=== PATIENT | male | born 1965 | race Caucasian/White ===

== ENCOUNTER 2021-03-20 05:47 | Day surgery (SDC) | payer OTHER ==
[2021-03-17 15:44] LABS: MICROSCOPIC AUTO
[2021-03-17 16:01] LABS: ALANINE AMINOTRANSFERASE 22 U/L (12-78); ALBUMIN 3.9 g/dL (3.4-5.0); ANION GAP 6 mmol/L (5-15); CALCIUM 8.9 mg/dL (8.5-10.1); CHLORIDE 110 mmol/L (98-107)
[2021-03-17 16:04] LABS: ALKALINE PHOSPHATASE 125 U/L (45-117); BILIRUBIN,TOTAL 0.3 mg/dL (0.2-1.0); TOTAL PROTEIN 6.6 g/dL (6.4-8.2)
[~2021-03-20] VITALS: Ht 175.3 cm; Wt 80.8 kg
[~2021-03-20 05:47] MED LIST: BELI200A INJ; CHOL10003 PO; HYDR200T72 PO; LISI-167 PO; PANT40TA6 PO; PRED1TAB19 PO; TAMS-11 PO
[2021-03-20] MEDS ORDERED: LACTATED RINGERS 1,000 ML IV SCH (06:30)
[2021-03-20] MEDS ORDERED: CHLORHEXIDINE 15 ML UDC PO ONE (06:30)
[2021-03-20 06:31] VITALS: BP 135/99
[2021-03-20] MEDS ORDERED: HYDROmorphone 1 MG/ML, 1ML INJ ONE (06:56)
[2021-03-20] MEDS ORDERED: FENTANYL PF 100 MCG/2ML ONE (06:57)
[2021-03-20] MEDS ORDERED: MIDAZOLAM 1 MG/ML, 2ML ONE (06:57)
[2021-03-20] MEDS ORDERED: OMNIPAQUE 350 MG/ML, 50 ML BOTTLE ONE (07:02)
[2021-03-20] MEDS ORDERED: DIAZEPAM 5 MG/ML, 2ML IVPush PRN (07:30)
[2021-03-20] MEDS ORDERED: METOPROLOL 1 MG/ML, 5ML IV PRN (07:30)
[2021-03-20] MEDS ORDERED: MEPERIDINE/PF 25MG/0.5ML IVPush PRN (07:30)
[2021-03-20] MEDS ORDERED: ACETAMINOPHEN 325 MG TABLET PO PRN (07:30)
[2021-03-20] MEDS ORDERED: LABETALOL 5MG/ML, 20ML IV PRN (07:30)
[2021-03-20] MEDS ORDERED: OXYcodone 5 MG/5 ML ORAL.SOL UDC PO PRN (07:30)
[2021-03-20] MEDS ORDERED: DIPHENHYDRAMINE 50 MG/ML, 1ML IVPush PRN (07:30)
[2021-03-20] MEDS ORDERED: HYDROmorphone 1 MG/ML, 1ML INJ IVPush PRN (07:30)
[2021-03-20] MEDS ORDERED: EPHEDRINE 50 MG/ML, 1ML IVPush PRN (07:30)
[2021-03-20] MEDS ORDERED: METOCLOPRAMIDE 5 MG/ML, 2ML IVPush PRN (07:30)
[2021-03-20] MEDS ORDERED: PROMETHAZINE 25 MG/ML, 1ML IVPush PRN (07:30)
[2021-03-20] MEDS ORDERED: HALOPERIDOL 5 MG/ML IV PRN (07:30)
[2021-03-20] MEDS ORDERED: hydrALAzine 20 MG/ML, 1ML IV PRN (07:30)
[2021-03-20] MEDS ORDERED: ONDANSETRON 2MG/ML, 2ML IVPush PRN (07:30)
[2021-03-20] MEDS ORDERED: FENTANYL PF 100 MCG/2ML IV PRN (07:30)
[2021-03-20] MEDS ORDERED: PHENYLEPHRINE 10 MG/ML ONE (10:15)
[2021-03-20] MEDS ORDERED: KETOROLAC 30 MG/1 ML ONE (10:15)
[2021-03-20] MEDS ORDERED: PROPOFOL 10 MG/ML, 20ML ONE (10:15)
[2021-03-20] MEDS ORDERED: CEFAZOLIN 1,000 MG ONE (10:15)
[2021-03-20] MEDS ORDERED: DEXAMETHASONE 4 MG/ML, 1ML ONE (10:15)
[2021-03-20] MEDS ORDERED: ONDANSETRON 2MG/ML, 2ML ONE (10:15)
== END 2021-03-20 10:39 | disposition home or self-care (01) ==
LOC: OUT 05:47
PROVIDERS: ATTEND Urology
DX: N20.0 Calculus of kidney (principal); I10 Essential (primary) hypertension; K21.9 Gastro-esophageal reflux disease without esophagitis; M32.9 Systemic lupus erythematosus, unspecified; Z20.822 Contact with and (suspected) exposure to COVID-19; Z79.899 Other long term (current) drug therapy; Z90.49 Acquired absence of other specified parts of digestive tract; Z88.8 Allergy status to other drugs, medicaments and biological substances; Z84.1 Family history of disorders of kidney and ureter
CPT/HCPCS: 36415; 52356; 74018; 80053; 81001; 82360; 88300; C1769; C2617; J0690; J1100; J1170; J1885; J2250; J2370; J2405; J2704; J3010; J7120; U0003; 76000; Q9967